=== PATIENT | female | born 1985 | race American Indian/Alaskan Native ===

== ENCOUNTER 2018-10-18 09:32 | Emergency (ER) | payer SELFPAY ==
[2018-10-18 10:24] LABS: Mean Corpuscular HGB Conc 34 % (30-34); Mean Corpuscular Volume 91 fl (79-97); Platelet Count 282 K/mm3 (140-440); Red Cell Distribution Width 12.9 % (13.2-15.2)
[2018-10-18 10:35] LABS: INR 1.04 (0.87-1.13); Partial Thromboplastin Time 23.5 Sec. (24.2-36.6)
[2018-10-18 11:07] LABS: Alanine Aminotransferase 17 units/L (7-56); Albumin 4.3 g/dL (3.9-5); BUN/Creatinine Ratio 13; Blood Urea Nitrogen 10 mg/dL (7-17); Calcium 9.2 mg/dL (8.4-10.2); Hemolysis Index 2
--- NOTE | 2018-10-18 11:13 | Emergency Department Report ---
ED General Adult HPI - General Chief complaint: Extremity Problem,Nontraumatic Stated complaint: LT SIDE/ARM/LEG/NAUSEA Time Seen by Provider: 10/18/18 11:08 Source: patient Mode of arrival: Ambulatory Limitations: No Limitations - History of Present Illness Initial comments: She presents to the emergency Department due to complaint of left upper extrem ity and left lower extremity pain. Patient has a history of DVTs and is currently on Lovenox. Patient denies any chest pain or shortness of breath. -: Gradual Location: upper extremity, lower extremity Severity scale (0 -10): 2 Quality: aching Consistency: constant Improves with: none Worsens with: none Associated Symptoms: denies other symptoms Treatments Prior to Arrival: none - Related Data Previous Rx's Medication Instructions Recorded Last Taken Type Naproxen [Naprosyn] 500 mg PO BID PRN #20 tablet 10/18/18 Unknown Rx Allergies Allergy/AdvReac Type Severity Reaction Status Date / Time No Known Allergies Allergy Verified 10/18/18 12:19 ED Review of Systems ROS: Stated complaint: LT SIDE/ARM/LEG/NAUSEA Other details as noted in HPI Comment: All other systems reviewed and negative Constitutional: denies: chills, fever Eyes: denies: eye pain, eye discharge, vision change ENT: denies: ear pain, throat pain Respiratory: denies: cough, shortness of breath, wheezing Cardiovascular: denies: chest pain, palpitations Endocrine: no symptoms reported Gastrointestinal: denies: abdominal pain, nausea, diarrhea Genitourinary: denies: urgency, dysuria, discharge Musculoskeletal: denies: back pain, joint swelling, arthralgia Skin: denies: rash, lesions Neurological: denies: headache, weakness, paresthesias Psychiatric: denies: anxiety, depression Hematological/Lymphatic: denies: easy bleeding, easy bruising ED Past Medical Hx - Social History Smoking Status: Never Smoker Substance Use Type: None - Medications Home Medications: Home Medications Medication Instructions Recorded Confirmed Last Taken Type Naproxen [Naprosyn] 500 mg PO BID PRN #20 tablet 10/18/18 Unknown Rx ED Physical Exam - General Limitations: No Limitations General appearance: alert, in no apparent distress - Head Head exam: Present: atraumatic, normocephalic - Eye Eye exam: Present: normal appearance, PERRL, EOMI - ENT ENT exam: Present: mucous membranes moist - Neck Neck exam: Present: normal inspection - Respiratory Respiratory exam: Present: normal lung sounds bilaterally. Absent: respiratory distress - Cardiovascular Cardiovascular Exam: Present: regular rate, normal rhythm. Absent: systolic murmur, diastolic murmur, rubs, gallop - GI/Abdominal GI/Abdominal exam: Present: soft, normal bowel sounds. Absent: distended, tenderness - Extremities Exam Extremities exam: Present: normal inspection - Back Exam Back exam: Present: normal inspection - Neurological Exam Neurological exam: Present: alert, oriented X3, CN II-XII intact. Absent: motor sensory deficit - Psychiatric Psychiatric exam: Present: normal affect, normal mood - Skin Skin exam: Present: warm, dry, intact, normal color. Absent: rash ED Course Vital Signs 10/18/18 10/18/18 10/18/18 09:43 10:42 10:45 Temperature 98.1 F Pulse Rate 83 Respiratory 18 Rate Blood Pressure 136/84 122/72 O2 Sat by Pulse 100 99 100 Oximetry 10/18/18 10/18/18 10/18/18 11:01 11:15 11:20 Temperature Pulse Rate 67 Respiratory 12 12 Rate Blood Pressure 119/78 121/69 O2 Sat by Pulse 100 100 100 Oximetry 10/18/18 10/18/18 11:30 11:45 Temperature Pulse Rate 64 62 Respiratory 16 16 Rate Blood Pressure 127/76 127/72 O2 Sat by Pulse 100 100 Oximetry ED Medical Decision Making - Lab Data Result diagrams: 10/18/18 10:11 10/18/18 10:11 Lab Results 10/18/18 10/18/18 10/18/18 Range/Units 10:11 10:11 10:11 WBC 4.9 (4.5-11.0) K/mm3 RBC 4.50 (3.65-5.03) M/mm3 Hgb 14.0 (10.1-14.3) gm/dl Hct 41.0 (30.3-42.9) % MCV 91 (79-97) fl MCH 31 (28-32) pg MCHC 34 (30-34) % RDW 12.9 L (13.2-15.2) % Plt Count 282 (140-440) K/mm3 PT 13.3 (12.2-14.9) Sec. INR 1.04 (0.87-1.13) APTT 23.5 L (24.2-36.6) Sec. Sodium 141 (137-145) mmol/L Potassium 3.8 (3.6-5.0) mmol/L Chloride 104.2 (98-107) mmol/L Carbon Dioxide 26 (22-30) mmol/L Anion Gap 15 mmol/L BUN 10 (7-17) mg/dL Creatinine 0.8 (0.7-1.2) mg/dL Estimated GFR > 60 ml/min BUN/Creatinine Ratio 13 % Glucose 92 (65-100) mg/dL Calcium 9.2 (8.4-10.2) mg/dL Total Bilirubin 0.30 (0.1-1.2) mg/dL AST 13 (5-40) units/L ALT 17 (7-56) units/L Alkaline Phosphatase 64 (35-129) units/L Troponin T (0.00-0.029) ng/mL Total Protein 8.0 (6.3-8.2) g/dL Albumin 4.3 (3.9-5) g/dL Albumin/Globulin Ratio 1.2 % // Range/Units 10:11 WBC (4.5-11.0) K/mm3 RBC (3.65-5.03) M/mm3 Hgb (10.1-14.3) gm/dl Hct (30.3-42.9) % MCV (79-97) fl MCH (28-32) pg MCHC (30-34) % RDW (13.2-15.2) % Plt Count (140-440) K/mm3 PT (12.2-14.9) Sec. INR (0.87-1.13) APTT (24.2-36.6) Sec. Sodium (137-145) mmol/L Potassium (3.6-5.0) mmol/L Chloride (98-107) mmol/L Carbon Dioxide (22-30) mmol/L Anion Gap mmol/L BUN (7-17) mg/dL Creatinine (0.7-1.2) mg/dL Estimated GFR ml/min BUN/Creatinine Ratio % Glucose (65-100) mg/dL Calcium (8.4-10.2) mg/dL Total Bilirubin (0.1-1.2) mg/dL AST (5-40) units/L ALT (7-56) units/L Alkaline Phosphatase (35-129) units/L Troponin T 0.010 (0.00-0.029) ng/mL Total Protein (6.3-8.2) g/dL Albumin (3.9-5) g/dL Albumin/Globulin Ratio % - EKG Data -: EKG Interpreted by Me EKG shows normal: sinus rhythm Rate: normal - EKG Data Interpretation: other (PVC's) - Radiology Data Radiology results: report reviewed - Medical Decision Making Discussed results with the patient Critical care attestation.: If time is entered above; I have spent that time in minutes in the direct care of this critically ill patient, excluding procedure time. ED Disposition Clinical Impression: Upper extremity pain, Lower extremity pain Disposition: TO HOME OR SELFCARE Is pt being admited?: No Does the pt Need Aspirin: No Condition: Stable Additional Instructions: return if worse Referrals: [facility], [Provider Group] - 3-5 Days [facility] [Provider Group] - 3-5 Days ROSSY MELLO MD [Staff Physician] - 3-5 Days Time of Disposition: 13:22
--- NOTE | 2018-10-18 12:20 | Vascular Lab Report ---
DUPLEX DOPPLER LOWER EXTREMITY VEINS, LEFT INDICATION: PAIN HX DVT. TECHNIQUE: Duplex doppler imaging was performed through the veins of the left lower extremity using venous compr ession and other maneuvers. COMPARISON: None available. FINDINGS: Common Femoral vein: Negative. Femoral vein: Negative. Popliteal vein: Negative. Calf veins: Negative. Additional findings: None. IMPRESSION: 1. No sonographic evidence for DVT in the left lower extremity. Signer Name: Constantine Sanford MD Signed: 10/18/2018 12:15 PM Workstation Name: [id number]
[2018-10-18 14:09] VITALS: BP 127/76
== END 2018-10-18 14:09 | disposition home or self-care (01) ==
LOC: ED 09:32
DX: M79.602 Pain in left arm (principal); M79.605 Pain in left leg
CPT/HCPCS: 36415; 80053; 84484; 85027; 85610; 85730; 93005; 93010

== ENCOUNTER 2019-03-27 15:47 | Emergency (ER) | payer OTHER ==
[2019-03-27 16:11] VITALS: BP 142/82
--- NOTE | 2019-03-27 16:13 | Event Note ---
ED Screening Note ED Screening Note: states she has burning and pain in her chest that began 1 hour ago did not take anything for it + nausea +lightheadedness no vomiting no diarrhea no fever states that her "d-dimer was high at the doctors office" two days ago PMHx DVT 2016, afib states she just started eliquis three days ago This initial assessment/diagnostic orders/clinical plan/treatment(s) is/are subject to change based on patients health status, clinical progression and re- assessment by fellow clinical providers in the ED. Further treatment and workup at subsequent clinical providers discretion. Patient/guardian urged not to elope from the ED as their condition may be serious if not clinically assessed and managed. Initial orders include: CP protocol
[2019-03-27 16:45] LABS: Basophils % (Auto) 0.2 % (0.0-1.8); Eosinophils # (Auto) 0.2 K/mm3 (0.0-0.4); Eosinophils % (Auto) 2.3 % (0.0-4.3); Hemoglobin 13.4 gm/dl (10.1-14.3); Lymphocytes # (Auto) 2.3 K/mm3 (1.2-5.4); Lymphocytes % (Auto) 29.5 % (13.4-35.0); Mean Corpuscular HGB Conc 34 % (30-34); Mean Corpuscular Volume 90 fl (79-97); Monocytes # (Auto) 0.6 K/mm3 (0.0-0.8); Monocytes % (Auto) 7.5 % (0.0-7.3); Platelet Count 292 K/mm3 (140-440); Red Blood Count 4.44 M/mm3 (3.65-5.03); Red Cell Distribution Width 12.9 % (13.2-15.2)
[2019-03-27 16:55] LABS: INR 1.08 (0.87-1.13)
[2019-03-27 17:18] LABS: Alanine Aminotransferase 15 units/L (7-56); Albumin 4.1 g/dL (3.9-5); BUN/Creatinine Ratio 15; Blood Urea Nitrogen 9 mg/dL (7-17); Calcium 9.4 mg/dL (8.4-10.2); Hemolysis Index 13
--- NOTE | 2019-03-27 17:57 | XRay Report ---
CHEST 2 VIEWS INDICATION / CLINICAL INFORMATION: Chest pain. COMPARISON: None available. FINDINGS: SUPPORT DEVICES: None. HEART / MEDIASTINUM: No significant abnormality. LUNGS / PLEURA: No significant pulmonary or pleural abnormality. No pneumothorax. ADDITIONAL FINDINGS: No significant additional findings. IMPRESSION: 1. No acute findings. Signer Name: Joe Kilpatrick MD Signed: 03/27/2019 5:53 PM Workstation Name: [id number] [email or web address]
--- NOTE | 2019-03-27 18:16 | Emergency Department Report ---
ED Chest Pain HPI - General Chief Complaint: Chest Pain Stated Complaint: CHEST PAIN/BURNING/LIGHT HEADED Time Seen by Provider: 03/27/19 16:11 Source: patient Mode of arrival: Ambulatory Limitations: No Limitations - History of Present Illness Initial Comments: states she has burning and pain in her chest that began 1 hour ago located midsternal around 4 PM today. patient has a past medical history of A. fib, PE, DVT did not take anything for it + nausea +lightheadedness no vomiting no diarrhea no fever states that her "d-dimer was high at the doctors office" two days ago Patient reports that she had been off of her anticoagulated medication for about a month and have started back on Eliquis 5 mg around [place] time. Patient was taking Lovenox. Patient currently denies any shortness of breath denies any chest pain at this time. Patient reports she is currently being treated for urinary tract infection with Macrobid. Patient's last menstrual period was 03/07/2019. Patient last saw her primary care provider was on 03/23/2019. 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) Pain Location: other (mid sternal) Pain Radiation: none Severity: mild Quality: other (burning) Worsens With: nothing re: denies: nausea, vomting, diaphoresis, dyspnea, sense of impending doom Other Symptoms: denies: cough, fever, syncope, acid taste in mouth, palpitations, burping Treatments Prior to Arrival: none - Related Data Home Medications Medication Instructions Recorded Confirmed Last Taken Apixaban [Eliquis] 03/27/19 1 Day Ago ~03/26/19 Previous Rx's Medication Instructions Recorded Last Taken Type Naproxen [Naprosyn] 500 mg PO BID PRN #20 tablet 10/18/18 03/27/19 20:20 Rx Allergies Allergy/AdvReac Type Severity Reaction Status Date / Time No Known Allergies Allergy Verified 10/18/18 12:19 Heart Score - HEART Score History: Slightly suspicious EKG: Non-specific Age: < 45 Risk factors: 1-2 risk factors Troponin: < normal limit HEART Score: 2 ED Review of Systems ROS: Stated complaint: CHEST PAIN/BURNING/LIGHT HEADED Other details as noted in HPI Comment: All other systems reviewed and negative ED Past Medical Hx - Past Medical History Hx Deep Vein Thrombosis: Yes (LLE) Hx Pulmonary Embolism: Yes (Right) Additional medical history: Afib per pt - Surgical History Additional Surgical History: x1, cerclage x3 - Social History Smoking Status: Never Smoker Substance Use Type: None - Medications Home Medications: Home Medications Medication Instructions Recorded Confirmed Last Taken Type Naproxen [Naprosyn] 500 mg PO BID PRN #20 tablet 10/18/18 03/27/19 20:20 Rx Apixaban [Eliquis] 03/27/19 1 Day Ago History ~03/26/19 ED Physical Exam - General Limitations: No Limitations General appearance: alert, in no apparent distress - Head Head exam: Present: atraumatic, normocephalic - Eye Eye exam: Present: normal appearance - ENT ENT exam: Present: mucous membranes moist - Neck Neck exam: Present: normal inspection - Respiratory Respiratory exam: Present: normal lung sounds bilaterally. Absent: respiratory distress, chest wall tenderness - Cardiovascular Cardiovascular Exam: Present: regular rate, normal rhythm. Absent: systolic murmur, diastolic murmur, rubs, gallop - GI/Abdominal GI/Abdominal exam: Present: soft, normal bowel sounds - Extremities Exam Extremities exam: Present: normal inspection - Back Exam Back exam: Present: normal inspection - Neurological Exam Neurological exam: Present: alert, oriented X3 - Psychiatric Psychiatric exam: Present: normal affect, normal mood - Skin Skin exam: Present: warm, dry, intact, normal color. Absent: rash ED Course Vital Signs 03/27/19 03/27/19 15:53 17:49 Temperature 98.8 F Pulse Rate 91 H Respiratory 20 16 Rate Blood Pressure 142/82 O2 Sat by Pulse 100 Oximetry VITO score - Vito Score Age > 65: (0) No Aspirin use within the Past 7 Days: (0) No 2 or more Angina events in past 24 hrs: (0) No Known CAD with more than 50% Stenosis: (0) No Elevated Cardiac Markers: (0) No ST Deviation Greater than 0.5mm: (0) No ED Medical Decision Making - Lab Data Result diagrams: 03/27/19 16:24 03/27/19 16:24 - Radiology Data Radiology results: report reviewed Patient: MALICK MONTOYA MR#: [id number] : 1985 Acct:[id number] Age/Sex: 33 / F ADM Date: 03/27/19 Loc: ED Attending Dr: Ordering Physician: ALVARO DE OLIVEIRA Date of Service: 03/27/19 Procedure(s): XR chest routine 2V Accession Number(s): [id number] cc: ALVARO DE OLIVEIRA Fluoro Time In Minutes: CHEST 2 VIEWS INDICATION / CLINICAL INFORMATION: Chest pain. COMPARISON: None available. FINDINGS: SUPPORT DEVICES: None. HEART / MEDIASTINUM: No significant abnormality. LUNGS / PLEURA: No significant pulmonary or pleural abnormality. No pneumothorax. ADDITIONAL FINDINGS: No significant additional findings. IMPRESSION: 1. No acute findings. Signer Name: Joe Kilpatrick MD Signed: 03/27/2019 5:53 PM Workstation Name: [id number] Transcribed By: RG Dictated By: Joe Kilpatrick MD Electronically Authenticated By: Joe Kilpatrick MD Signed Date/Time: 03/27/191752 DD/ 52 TD/TT: Patient: MALICK MONTOYA MR#: [id number] : 1985 Acct:[id number] Age/Sex: 33 / F ADM Date: 03/27/19 Loc: ED Attending Dr: Ordering Physician: ALVARO DE OLIVEIRA Date of Service: 03/27/19 Procedure(s): CT angio chest Accession Number(s): [id number] cc: ALVARO DE OLIVEIRA CTA CHEST WITH IV CONTRAST INDICATION: Chest pain, elevated d-dimer. TECHNIQUE: Axial CT images were obtained through the chest after injection of 100 mL Omnipaque 350 IV contrast. 3 plane MIP reconstructions were produced. All CT scans at this location are performed using CT dose reduction for ALARA by means of automated exposure control. COMPARISON: None available. FINDINGS: Pulmonary Arteries: No pulmonary emboli. Lungs: No significant abnormality. Trachea and Bronchi: No significant abnormality. Heart and Pericardium: No significant abnormality. Vasculature: No significant abnormality. Lymphatics: No lymphadenopathy. Additional Findings: None. Upper Abdomen: No acute findings. Skeletal Structures: No significant osseous abnormality. IMPRESSION: 1. No CT evidence for pulmonary embolism. 2. No acute findings. Signer Name: Joe Kilpatrick MD Signed: 03/27/2019 7:13 PM Workstation Name: [id number] Transcribed By: RG Dictated By: Joe Kilpatrick MD Electronically Authenticated By: Joe Kilpatrick MD Signed Date/Time: 03/27/191912 DD/ 11 TD/TT: - Medical Decision Making states she has burning and pain in her chest that began 1 hour ago located midsternal around 4 PM today. patient has a past medical history of A. fib, PE, DVT did not take anything for it + nausea +lightheadedness no vomiting no diarrhea no fever states that her "d-dimer was high at the doctors office" two days ago Patient reports that she had been off of her anticoagulated medication for about a month and have started back on Eliquis 5 mg around [place] time. Patient was taking Lovenox. Patient currently denies any shortness of breath denies any chest pain at this time. Patient reports she is currently being treated for ur inary tract infection with Macrobid. Patient's last menstrual period was 03/07/2019. Patient last saw her primary care provider was on 03/23/2019. Chest pain protocol has been initiated. CT chest CTA chest two negative troponin EKG stable heart rate 89 no signs of A. fib Patient is to follow-up with her core analyst and primary care provider. Critical care attestation.: If time is entered above; I have spent that time in minutes in the direct care of this critically ill patient, excluding procedure time. ED Disposition Clinical Impression: Atypical chest pain, History of pulmonary embolism, History of deep vein thromb osis, History of atrial fibrillation Disposition: DC-01 TO HOME OR SELFCARE Is pt being admited?: No Does the pt Need Aspirin: No Condition: Stable Instructions: Chest Pain (ED) Referrals: KAREN RUBI NP-C [Referring] - 3-5 Days Forms: Work/School Release Form(ED)
--- NOTE | 2019-03-27 19:18 | Cat Scan Report ---
CTA CHEST WITH IV CONTRAST INDICATION: Chest pain, elevated d-dimer. TECHNIQUE: Axial CT images were obtained through the chest after injection of 100 mL Omnipaque 350 IV contrast. 3 plane MIP reconstructions were produced. All CT scans at this location are performed using CT dose reduction for ALARA by means of automated exposure control. COMPARISON: None available. FINDINGS: Pulmonary Arteries: No pulmonary emboli. Lungs: No significant abnormality. Trachea and Bronchi: No significant abnormality. Heart and Pericardium: No significant abnormality. Vasculature: No significant abnormality. Lymphatics: No lymphadenopathy. Additional Findings: None. Upper Abdomen: No acute findings. Skeletal Structures: No significant osseous abnormality. IMPRESSION: 1. No CT evidence for pulmonary embolism. 2. No acute findings. Signer Name: Joe Kilpatrick MD Signed: 03/27/2019 7:13 PM Workstation Name: [email or web address]
== END 2019-03-27 21:30 | disposition home or self-care (01) ==
LOC: ED 15:47
DX: R07.89 Other chest pain (principal); R42 Dizziness and giddiness; I48.91 Unspecified atrial fibrillation; Z86.711 Personal history of pulmonary embolism; Z98.890 Other specified postprocedural states; Z79.899 Other long term (current) drug therapy
CPT/HCPCS: 36415; 71046; 71275; 80053; 84484; 84703; 85025; 85379; 85610; 85730; 93005; 93010; 99285; Q9967

== ENCOUNTER 2019-04-25 06:01 | Day surgery (SDC) | payer OTHER, MEDICAID ==
--- NOTE | 2019-04-23 10:34 | History and Physical Report ---
History of Present Illness Date of examination: 04/18/19 Chief complaint: MISAEL II History of present illness: Pt is a 33 year old -[place] female with HSIL pap smear and MISAEL II on colposcopic biopsy. She presents for surgical evaluation of MISAEL II. 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 History: abnormal PAP smear (per HPI ), herpes Family/Genetic History: diabetes, hypertension, cancer Social history: no significant social history, - Obstetrical History : 5 Para: 3 Hx # Term Pregnancies: 3 Number of Pregnancies: 0 Spontaneous Abortions: 2 Induced : 0 Number of Living Children: 3 Medications and Allergies Allergies Allergy/AdvReac Type Severity Reaction Status Date / Time No Known Allergies Allergy Verified 04/20/19 15:43 Home Medications Medication Instructions Recorded Confirmed Last Taken Type Apixaban [Eliquis] 5 mg PO BID 03/27/19 04/20/19 1 Day Ago History ~03/26/19 Cholecalciferol (Vitamin D3) 1 cap PO QWEEK 04/20/19 04/20/19 Unknown History [Vitamin D3 50,000UNIT CAP] Simvastatin 20 mg PO HS 04/20/19 04/20/19 Unknown History Valacyclovir HCl [Valtrex] 1,000 mg PO DAILY PRN 04/20/19 04/20/19 Unknown History Review of Systems All systems: negative - Physical Exam Breasts: Positive: deferred Abdomen: Positive: soft Extremities: Positive: normal Results All other labs normal. Assessment and Plan A: MISAEL II HSIL pap smear P: Proceed with Loop Electrosurgical Excision Procedure (LEEP) and other indicated procedures
[~2019-04-25 06:01] MED LIST: LACTATED RINGERS 1,000 ML IV SCH; ceFAZolin/Water 2 GM/20 ML 2 GM/20 ML SYRINGE IV NR
--- NOTE | 2019-04-25 06:48 | Anesthesia Day of Surgery ---
Anesthesia Day of Surgery - Day of Surgery Patient Examined: Yes Patient H&P Reviewed: Yes Patient is NPO: Yes
--- NOTE | 2019-04-25 06:48 | Anesthesia Day of Surgery ---
Anesthesia Day of Surgery - Day of Surgery Patient Examined: Yes Patient H&P Reviewed: Yes Patient is NPO: Yes
[2019-04-25] MEDS ORDERED: fentaNYL 100 MCG/2 ML INJ IV PRN (06:50)
[2019-04-25] MEDS ORDERED: ONDANSETRON 4 MG/2 ML INJ IV PRN (06:50)
[2019-04-25] MEDS ORDERED: ACETAMINOPHEN 325 MG TAB PO PRN (06:50)
--- NOTE | 2019-04-25 06:50 | Anesthesia Consultation ---
Anesthesia Consult and Med Hx Date of service: 04/25/19 - Airway Anesthetic Teeth Evaluation: Good ROM Head & Neck: Adequate Mental/Hyoid Distance: Adequate Mallampati Class: Class II - Pulmonary Exam CTA: Yes - Cardiac Exam Anesthetic Concerns: A Fib - Pre-Operative Health Status ASA Pre-Surgery Classification: ASA3 Proposed Anesthetic Plan: General (DVT) - Pulmonary Hx Asthma: Yes (As a child) - Central Nervous System Hx Psychiatric Problems: No - Other Systems Hx Alcohol Use: Yes (Occas) Hx Cancer: No
[2019-04-25 08:02] VITALS: BP 136/72
== END 2019-04-25 07:42 | disposition home or self-care (01) ==
LOC: OR 06:01
PROVIDERS: ATTEND Obstetrics & Gynecology
DX: N87.1 Moderate cervical dysplasia (principal); E78.00 Pure hypercholesterolemia, unspecified; E11.9 Type 2 diabetes mellitus without complications; I10 Essential (primary) hypertension; J45.909 Unspecified asthma, uncomplicated; Z72.89 Other problems related to lifestyle; Z53.8 Procedure and treatment not carried out for other reasons; Z98.891 History of uterine scar from previous surgery
CPT/HCPCS: 81025; J0690

== ENCOUNTER 2019-05-08 06:01 | Day surgery (SDC) | payer OTHER, MEDICAID ==
--- NOTE | 2019-05-07 20:54 | History and Physical Report ---
History of Present Illness Date of examination: 04/18/19 Chief complaint: MISAEL II History of present illness: Pt is a 33 year old -Citizen Of [place] female with HSIL pap smear an MISAEL II on colposcopic biopsy who presents for surgical evaluation. 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: abnormal PAP smear (per HPI), herpes Family/Genetic History: diabetes, hypertension, cancer Social history: no significant social history, - Obstetrical History : 5 Para: 3 Hx # Term Pregnancies: 3 Number of Pregnancies: 0 Spontaneous Abortions: 2 Induced : 0 Number of Living Children: 3 Medications and Allergies Allergies Allergy/AdvReac Type Severity Reaction Status Date / Time No Known Allergies Allergy Verified 04/26/19 10:30 Home Medications Medication Instructions Recorded Confirmed Last Taken Type Apixaban [Eliquis] 5 mg PO BID 03/27/19 04/26/19 04/24/19 09:00 History Cholecalciferol (Vitamin D3) 1 cap PO QWEEK 04/20/19 04/26/19 04/18/19 09:00 History [Vitamin D3 50,000UNIT CAP] Simvastatin 20 mg PO HS 04/20/19 04/26/19 04/24/19 20:00 History Valacyclovir HCl [Valtrex] 1,000 mg PO DAILY PRN 04/20/19 04/26/19 04/18/19 09:00 History Metoprolol Xl [Metoprolol 25 mg PO QDAY 04/26/19 04/26/19 Unknown History SUCCINATE ER TAB] Active Meds: Active Medications Lactated Ringer's (Lactated Ringers) 1,000 mls @ 100 mls/hr IV DIRECT ARNULFO Cefazolin Sodium (Ancef/Sterile Water 2 Gm/20 Ml) 2 gm in 20 mls @ 80 mls/hr IV PREOP NR; Protocol Midazolam HCl (Versed) 2 mg IV PREOP NR Stop: 05/08/19 23:00 Review of Systems All systems: negative - Physical Exam Breasts: Positive: deferred Abdomen: Positive: soft Extremities: Positive: normal Results All other labs normal. Assessment and Plan A: MISAEL II on colposcopic biopsy HSIL pap smear H/o DVT and PE H/o Atrial Fibrillation Anticoagulated with Eliquis, last dose 4 days ago P: Proceed with Loop Electrosurgical Excision Procedure (LEEP) and other indicated procedures
[2019-05-08] MEDS ORDERED: BACTERIOSTATIC SODIUM CHLORIDE 0.9% 30 ML VIAL INFILTRATI ONE (06:15)
[2019-05-08] MEDS: MIDAZOLAM 2 MG/2 ML INJ IV NR ×2 (07:10→08:35)
[2019-05-08] MEDS ORDERED: GELATIN SPONGE,ABSORBABLE 1 GM POWDER MM ONE (07:24)
[2019-05-08] MEDS ORDERED: BUPIVACAINE/PF (0.5%) 5 MG/1 ML 30 ML VIAL INFILTRATI ONE (07:25)
[2019-05-08] MEDS ORDERED: FERRIC SUBSULFATE TOPICAL SOLN 8 ML TP ONE ×2 (07:25→09:25)
[2019-05-08] MEDS ORDERED: POTASSIUM IODIDE/IODINE (LUGOLS) 30 ML TP ONE ×2 (07:25→09:15)
[2019-05-08] MEDS ORDERED: SODIUM CHLORIDE 0.9% 100 ML ONE (07:25)
[2019-05-08] MEDS ORDERED: VASOPRESSIN 20 UNIT/1 ML INJ ONE (07:26)
[2019-05-08] MEDS ORDERED: propofoL 200 MG/20 ML VIAL IV ONE (07:30)
[2019-05-08] MEDS ORDERED: fentaNYL 100 MCG/2 ML INJ ONE (07:30)
[2019-05-08] MEDS ORDERED: LIDOCAINE MPF (2%) 20 MG/1 ML VIAL 5 ML ONE (07:31)
[2019-05-08] MEDS ORDERED: dexAMETHasone 20 MG/5 ML VIAL ONE (07:31)
[2019-05-08] MEDS ORDERED: ONDANSETRON 4 MG/2 ML INJ ONE (07:31)
[2019-05-08] MEDS ORDERED: ONDANSETRON 4 MG/2 ML INJ IV PRN (07:32)
[2019-05-08] MEDS ORDERED: fentaNYL 100 MCG/2 ML INJ IV PRN (07:32)
--- NOTE | 2019-05-08 07:35 | Anesthesia Day of Surgery ---
Anesthesia Day of Surgery - Day of Surgery Patient Examined: Yes Patient H&P Reviewed: Yes Patient is NPO: Yes Beta Blockers: Yes
[2019-05-08 07:47] LABS: Hematocrit 42.5 % (30.3-42.9); Hemoglobin 14.1 gm/dl (10.1-14.3); Mean Corpuscular HGB Conc 33 % (30-34); Mean Corpuscular Volume 90 fl (79-97); Platelet Count 261 K/mm3 (140-440); Red Cell Distribution Width 12.9 % (13.2-15.2)
[2019-05-08] MEDS ORDERED: SILVER NITRATE APPLICATOR 1 EA TP ONE ×3 (08:57→11:32)
[2019-05-08] MEDS ORDERED: SODIUM CHLORIDE 0.9% 100 ML IVPB IV ONE (09:10)
[2019-05-08] MEDS ORDERED: GLYCOPYRROLATE 0.4 MG/2 ML INJ ONE (09:28)
[2019-05-08] MEDS ORDERED: PHENYLEPHRINE/NS 1,000 MCG/10 ML SYRINGE (OR USE) IV ONE (09:28)
--- NOTE | 2019-05-08 09:36 | Operative Report ---
Operative Report Operative Report: Date of procedure: May 08, 2019 Preoperative diagnosis: MISAEL II Postoperative diagnosis: same Procedure: Loop Electrosurgical Excision Procedure (LEEP) Surgeon: Jenny Aceves MD Anesthesia: General with LMA Findings: Circumferential non-staining area of cervix after application of Lugol's solution EBL: 10 mL Specimens: cervical cone biopsy tagged at 12 o'clock to pathology Drains: None Complications: None. Counts correct x 2 Disposition: stable to PACU Indication for procedure: Pt is a 33 year old -[place] female with HSIL pap smear and MISAEL II on colposcopic biopsy who presents for surgical evaluation. Operation in detail: After the risks, benefits, alternatives, and complications were explained to the patient, she gave informed consent for the procedure. She was subsequently taken to the operating room with her IV noted to be running well and placed in the dorsal supine position. SCDs were noted to be in place and functioning. General anesthesia was induced without difficulty. The patient was then placed in the dorsal lithotomy position and prepped and draped in a normal sterile fashion. A timeout was performed. The bladder was drained of urine prior to the start of the procedure. A coated speculum was then placed in the vagina for visualization of the cervix. A coated tenaculum was placed on the anterior lip of the cervix for traction. The cervix was injected with 10 mL of a dilute pitressin solution at 12, 3 , 6, and 9 o'clock. Lugol's solution was then placed on cervix with circumferential non- staining area around the external cervical os. A medium loop was used to excise cervical cone biopsy specimen that was tagged at 12 o'clock with 2-0 Vicryl suture and then sent to pathology. Rollerball cautery was used to obtain hemostasis of the cervical bed. Monsel's solution was placed over the cervical bed. Surgicel was placed in over the cervical bed. Hemostasis was noted. The tenaculum was removed atraumatically. Hemostasis of the tenaculum puncture sites was achieved using silver nitrate. All instruments were removed from the vagina atraumatically and the procedure was then ended. The patient was then replaced into the dorsal supine position and extubated without difficulty. She was then taken to the PACU in stable condition. All counts were correct x 2.
--- NOTE | 2019-05-08 09:40 | Short Stay Summary ---
Short Stay Documentation Date of service: 05/08/19 - History H&P: dictated Social history: no significant social history, - Allergies and Medications Current Medications: Allergies No Known Allergies Allergy (Verified 04/26/19 10:30) Home Medications Medication Instructions Recorded Confirmed Last Taken Type Apixaban [Eliquis] 5 mg PO BID 03/27/19 05/08/19 5 Days Ago History ~05/03/19 Cholecalciferol (Vitamin D3) 1 cap PO QWEEK 04/20/19 05/08/19 05/05/19 History [Vitamin D3 50,000UNIT CAP] Simvastatin 20 mg PO HS 04/20/19 05/08/19 05/07/19 History Valacyclovir HCl [Valtrex] 1,000 mg PO DAILY PRN 04/20/19 05/08/19 04/18/19 09:00 History Metoprolol Xl [Metoprolol 25 mg PO QDAY 04/26/19 05/08/19 05/08/19 06:40 History SUCCINATE ER TAB] Active Medications Fentanyl (Sublimaze) 50 mcg IV Q5MIN PRN PRN Reason: Pain , Severe (7-10) Stop: 05/08/19 22:00 Lactated Ringer's (Lactated Ringers) 1,000 mls @ 100 mls/hr IV DIRECT ARNULFO Last Admin: 05/08/19 07:00 Dose: 100 mls/hr Documented by: Cefazolin Sodium (Ancef/Sterile Water 2 Gm/20 Ml) 2 gm in 20 mls @ 80 mls/hr IV PREOP NR; Protocol Stop: 05/08/19 23:59 Midazolam HCl (Versed) 2 mg IV PREOP NR Stop: 05/08/19 23:00 Last Admin: 05/08/19 08:35 Dose: 2 mg Documented by: Ondansetron HCl (Zofran) 4 mg IV ONCE PRN PRN Reason: Nausea And Vomiting Stop: 05/08/19 13:00 - Physical exam Breasts: deferred - Brief post op/procedure progress note Date of procedure: 05/08/19 Pre-op diagnosis: MISAEL II Post-op diagnosis: same Procedure: Loop Electrosurgical Excisio Procedure (LEEP) Anesthesia: GETA (with LMA ) Findings: Small circumferential non-staining area surrounding external cervical os when covered with Lugol's Solution Surgeon: DANILO HANCOCK Estimated blood loss: minimal (10 mL) Pathology: list (cervical biopsy) Specimen disposition: to lab Condition: stable - Hospital course Hospital course: Pt underwent LEEP procedure which she tolerated well. She was observed in the PACU until she met discharge criteria. She will follow up in the office in 1 week. - Disposition Condition at discharge: Stable Disposition: - TO HOME OR SELFCARE - Discharge Diagnoses (1) MISAEL II (cervical intraepithelial neoplasia II) Status: Acute Short Stay Discharge Plan Activity: other (Nothing in vagina, no intercourse, no tub baths, no swimming for 4 weeks ) Weight Bearing Status: Full Weight Bearing Diet: regular Follow up with: KAREN RUBI NP-C [Primary Care Provider] - 7 Days DANILO HANCOCK MD [Staff Physician] - 7 Days (Please call to schedule a postop appt next week ) Prescriptions: HYDROcodone/APAP 5-325 [[place] 5/325] 1 each PO Q6HR PRN #20 tablet PRN Reason: Pain
[2019-05-08 10:48] VITALS: BP 126/73
--- NOTE | 2019-05-08 20:48 | Post Anesthesia Evaluation ---
- Post Anesthesia Evaluation Patient Participated: Yes Airway Patent: Yes Stable Respiratory Function: Yes Nausea/Vomiting: No Temp > 96.8F: Yes Pain Manageable: Yes Adequeate Hydration: Yes Anesthesia Complications: No Block Receding Appropriately: Not Applicable Patient on Ventilator: No
== END 2019-05-08 06:02 | disposition home or self-care (01) ==
LOC: OR 06:01
PROVIDERS: ATTEND Obstetrics & Gynecology
DX: N87.1 Moderate cervical dysplasia (principal); E78.00 Pure hypercholesterolemia, unspecified; I48.91 Unspecified atrial fibrillation; J45.909 Unspecified asthma, uncomplicated; K21.9 Gastro-esophageal reflux disease without esophagitis; Z98.891 History of uterine scar from previous surgery; Z86.711 Personal history of pulmonary embolism; Z79.899 Other long term (current) drug therapy; Z72.89 Other problems related to lifestyle; Z98.890 Other specified postprocedural states; Z86.2 Personal history of diseases of the blood and blood-forming organs and certain disorders involving the immune mechanism
CPT/HCPCS: 36415; 57522; 81025; 82962; 85027; 88307; 93005; 93010; J0690; J1100; J2250; J2370; J2405; J2704; J3010; J7120; A4649

== ENCOUNTER 2019-12-06 11:07 | Emergency (ER) | payer OTHER, MEDICAID ==
[2019-12-06 12:49] LABS: Basophils % (Auto) 0.3 % (0.0-1.8); Eosinophils % (Auto) 0.7 % (0.0-4.3); Hematocrit 43.1 % (30.3-42.9); Hemoglobin 14.6 gm/dl (10.1-14.3); Lymphocytes # (Auto) 1.1 K/mm3 (1.2-5.4); Lymphocytes % (Auto) 17.5 % (13.4-35.0); Mean Corpuscular HGB Conc 34 % (30-34); Mean Corpuscular Volume 92 fl (79-97); Monocytes # (Auto) 0.2 K/mm3 (0.0-0.8); Monocytes % (Auto) 3.8 % (0.0-7.3); Platelet Count 249 K/mm3 (140-440); Red Blood Count 4.72 M/mm3 (3.65-5.03); Red Cell Distribution Width 12.6 % (13.2-15.2)
[2019-12-06 12:56] LABS: INR 1.19 (0.87-1.13)
[2019-12-06 12:57] LABS: Partial Thromboplastin Time 25.9 Sec. (24.2-36.6)
[2019-12-06 13:01] LABS: Blood Urea Nitrogen 9 mg/dL (7-17); Calcium 9.5 mg/dL (8.4-10.2); Hemolysis Index 6
[2019-12-06 13:02] LABS: BUN/Creatinine Ratio 13
--- NOTE | 2019-12-06 13:15 | Cat Scan Report ---
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 TECHNIQUE: Routine CT head without contrast. All CT scans at this location are performed using CT dos e reduction for ALARA by means of automated exposure control. COMPARISON: None. FINDINGS: BRAIN / INTRACRANIAL CONTENTS: No acute hemorrhage, mass effect, midline shift, hydrocephalus, or acu te, large territorial infarct. No chronic infarct or focal atrophy. Normal brain volume and ventricul ar/sulcal size for age. No significant white matter abnormality. CRANIOCERVICAL JUNCTION: No significant abnormality. ORBITS: No significant abnormality of visualized orbits. SINUSES / MASTOIDS: No significant abnormality of the visualized paranasal sinuses or mastoid air сергей ls. ADDITIONAL FINDINGS: Empty sella IMPRESSION: No acute focal parenchymal lesion in the brain Signer Name: Rebekah Land MD Signed: 12/06/2019 1:11 PM Workstation Name: [id number]
[2019-12-06 16:16] VITALS: BP 129/71
--- NOTE | 2019-12-06 17:07 | Emergency Department Report ---
ED Dizziness HPI - General Chief Complaint: Neuro Symptoms/Deficit Stated Complaint: DIZZY/PRESURE ON RIGHT SIDE OF HEAD/CONFUSION Time Seen by Provider: 12/06/19 16:28 Source: patient Mode of arrival: Ambulatory Limitations: No Limitations - History of Present Illness Initial Comments: Patient is 33 years old female with history of pulmonary embolism, DVT and atrial fibrillation, currently on Eliquis 10 mg daily. Patient presented to the ER complaining of dizziness and lightheadedness. Patient stated that she woke up with symptoms this morning. She stated that she was fine last night. Patient denied any chest pain or shortness of breath. No lower extremity swelling or pain. Patient also denied any fever, chills, cough, nausea or vomiting. Patient also denied any focal weakness, numbness or tingling sensation. No bowel or bladder incontinence MD Complaint: dizziness, lightheadedness -: This morning Timing: awoke with symptoms Description: sense of movement, lightheadedness History of Same: Yes History of Trauma: No Severity: moderate Associated Symptoms: denies other symptoms - Related Data Home Medications Medication Instructions Recorded Confirmed Last Taken Apixaban [Eliquis] 5 mg PO BID 03/27/19 05/08/19 5 Days Ago ~05/03/19 Cholecalciferol (Vitamin D3) 1 cap PO QWEEK 04/20/19 05/08/19 05/05/19 [Vitamin D3 50,000UNIT CAP] Simvastatin 20 mg PO HS 04/20/19 05/08/19 05/07/19 Valacyclovir HCl [Valtrex] 1,000 mg PO DAILY PRN 04/20/19 05/08/19 04/18/19 09:00 Metoprolol Xl [Metoprolol 25 mg PO QDAY 04/26/19 05/08/19 05/08/19 06:40 SUCCINATE ER TAB] Previous Rx's Medication Instructions Recorded Last Taken Type HYDROcodone/APAP 5-325 [[place] 1 each PO Q6HR PRN #20 tablet 05/08/19 Unknown Rx 5/325] HYDROcodone/APAP 5-325 [[place] 1 each PO Q6HR PRN #20 tablet 05/08/19 Unknown Rx 5/325] Apixaban [Eliquis] 2.5 mg PO BID #60 tablet 06/19/19 Unknown Rx traMADoL [Ultram 50 MG tab] 50 mg PO Q6HR PRN #10 tablet 06/19/19 Unknown Rx Allergies Allergy/AdvReac Type Severity Reaction Status Date / Time No Known Allergies Allergy Verified 04/26/19 10:30 ED Review of Systems ROS: Stated complaint: DIZZY/PRESURE ON RIGHT SIDE OF HEAD/CONFUSION Other details as noted in HPI Comment: All other systems reviewed and negative Constitutional: denies: chills, fever Respiratory: denies: cough, shortness of breath, SOB with exertion Cardiovascular: denies: chest pain, palpitations, dyspnea on exertion Gastrointestinal: denies: abdominal pain, nausea, vomiting, diarrhea, constipation, hematemesis, melena, hematochezia Musculoskeletal: denies: back pain Neurological: vertigo. denies: headache, weakness, numbness, paresthesias, confusion, abnormal gait ED Past Medical Hx - Past Medical History Hx Deep Vein Thrombosis: Yes (x2 takes Eliquis) Hx Pulmonary Embolism: Yes (Right) Hx GERD: Yes Hx Asthma: Yes (As a child) Additional medical history: Afib per pt - Surgical History Additional Surgical History: x1, cerclage x3 - Social History Smoking Status: Never Smoker Substance Use Type: None - Medications Home Medications: Home Medications Medication Instructions Recorded Confirmed Last Taken Type Apixaban [Eliquis] 5 mg PO BID 03/27/19 05/08/19 5 Days Ago History ~05/03/19 Cholecalciferol (Vitamin D3) 1 cap PO QWEEK 04/20/19 05/08/19 05/05/19 History [Vitamin D3 50,000UNIT CAP] Simvastatin 20 mg PO HS 04/20/19 05/08/19 05/07/19 History Valacyclovir HCl [Valtrex] 1,000 mg PO DAILY PRN 04/20/19 05/08/19 04/18/19 09:00 History Metoprolol Xl [Metoprolol 25 mg PO QDAY 04/26/19 05/08/19 05/08/19 06:40 History SUCCINATE ER TAB] HYDROcodone/APAP 5-325 [[place] 1 each PO Q6HR PRN #20 tablet 05/08/19 Unknown Rx 5/325] HYDROcodone/APAP 5-325 [[place] 1 each PO Q6HR PRN #20 tablet 05/08/19 Unknown Rx 5/325] Apixaban [Eliquis] 2.5 mg PO BID #60 tablet 06/19/19 Unknown Rx traMADoL [Ultram 50 MG tab] 50 mg PO Q6HR PRN #10 tablet 06/19/19 Unknown Rx ED Physical Exam - General Limitations: No Limitations General appearance: alert, in no apparent distress - Head Head exam: Present: atraumatic, normocephalic, normal inspection - Eye Eye exam: Present: normal appearance, PERRL - ENT ENT exam: Present: normal exam, normal orophraynx, mucous membranes moist - Neck Neck exam: Present: normal inspection, full ROM. Absent: tenderness, meningismus, lymphadenopathy, thyromegaly - Respiratory Respiratory exam: Present: normal lung sounds bilaterally - Cardiovascular Cardiovascular Exam: Present: regular rate, irregular rhythm. Absent: systolic murmur, diastolic murmur - GI/Abdominal GI/Abdominal exam: Present: soft, normal bowel sounds. Absent: distended, tenderness, guarding, rebound, rigid - Extremities Exam Extremities exam: Present: normal inspection, full ROM, normal capillary refill. Absent: tenderness, pedal edema, joint swelling, calf tenderness - Back Exam Back exam: Present: normal inspection, full ROM. Absent: CVA tenderness (R), CVA tenderness (L) - Neurological Exam Neurological exam: Present: alert, oriented X3, CN II-XII intact, normal gait, reflexes normal. Absent: motor sensory deficit - Psychiatric Psychiatric exam: Present: normal mood - Skin Skin exam: Present: warm, intact, normal color ED Course Vital Signs 12/06/19 12/06/19 11:31 16:11 Temperature 98.6 F Pulse Rate 65 71 Respiratory 16 18 Rate Blood Pressure 121/73 Blood Pressure 129/71 [Left] O2 Sat by Pulse 100 100 Oximetry ED Medical Decision Making - Lab Data Result diagrams: 12/06/19 12:22 12/06/19 12:22 - Radiology Data Radiology results: report reviewed - Medical Decision Making Patient is 33 years old female with history of pulmonary embolism, DVT and atrial fibrillation, currently on Eliquis 10 mg daily. Patient presented to the ER complaining of dizziness and lightheadedness. Patient stated that she woke up with symptoms this morning. She stated that she was fine last night. Pat ient denied any chest pain or shortness of breath. No lower extremity swelling or pain. Patient also denied any fever, chills, cough, nausea or vomiting. Patient also denied any focal weakness, numbness or tingling sensation. No bowel or bladder incontinence. Labs reviewed and is unremarkable. CT brain is negative for acute finding. Discussed with the patient further test that we need to order to make sure that she does not have a pulmonary embolism or stroke given her strong history of D VT, pulmonary embolism and atrial fibrillation and patient also reported that she is not consistently taking her Eliquis, I recommended the patient to be admitted to the hospital for further management including stroke work-up because this is could be a posterior circulation stroke given the dizziness. Patient refused the test and refused admission and stated that she will go home. I explained to the patient thoroughly this is very dangerous and he can cause , disability however patient still wanted to leave AGAINST MEDICAL ADVICE. Patient is alert, oriented x3 and able to make sound decision. Patient strongly advised to return to the ER or go to another ER if her symptoms get worse and also if she wanted come back at any time to finish her work-up. Critical care attestation.: If time is entered above; I have spent that time in minutes in the direct care of this critically ill patient, excluding procedure time. ED Disposition Clinical Impression: Dizziness Disposition: DC-07 LEFT AGAINST MED ADVICE Is pt being admited?: No Condition: Stable Instructions: Dizziness (ED), Lightheadedness (ED) Referrals: KAREN RUBI NP-C [Primary Care Provider] - 3-5 Days Forms: AMA Form
== END 2019-12-06 17:02 | disposition left against medical advice (07) ==
LOC: ED 11:07
DX: R42 Dizziness and giddiness (principal); K21.9 Gastro-esophageal reflux disease without esophagitis; J45.909 Unspecified asthma, uncomplicated; Z86.718 Personal history of other venous thrombosis and embolism; Z86.711 Personal history of pulmonary embolism; Z98.890 Other specified postprocedural states; Z79.899 Other long term (current) drug therapy
CPT/HCPCS: 36415; 70450; 80048; 82962; 84484; 85025; 85610; 85730

== ENCOUNTER 2020-01-06 22:15 | Emergency (ER) | payer MEDICAID, OTHER ==
[2020-01-06 23:59] LABS: Blood Urea Nitrogen 7 mg/dL (7-17); Hemolysis Index 7
[2020-01-07 00:01] LABS: BUN/Creatinine Ratio 10
--- NOTE | 2020-01-07 00:17 | XRay Report ---
CHEST 1 VIEW 01/06/2020 11:10 PM INDICATION / CLINICAL INFORMATION: Chest Pain. COMPARISON: 06/19/19 FINDINGS: SUPPORT DEVICES: None. HEART / MEDIASTINUM: No significant abnormality. LUNGS / PLEURA: No significant pulmonary or pleural abnormality. No pneumothorax. ADDITIONAL FINDINGS: No significant additional findings. IMPRESSION: 1. No acute findings. No change. Signer Name: Jennifer Miner MD Signed: 01/07/2020 12:12 AM Workstation Name: [email or web address]
[2020-01-07 00:18] LABS: Hematocrit 40.2 % (30.3-42.9); Hemoglobin 13.4 gm/dl (10.1-14.3); Mean Corpuscular HGB Conc 33 % (30-34); Mean Corpuscular Volume 91 fl (79-97); Platelet Count 259 K/mm3 (140-440); Red Blood Count 4.43 M/mm3 (3.65-5.03); Red Cell Distribution Width 12.5 % (13.2-15.2)
--- NOTE | 2020-01-07 00:34 | Emergency Department Report ---
ED Chest Pain HPI - General Chief Complaint: Chest Pain Stated Complaint: CHEST DISCOMFORT, A FIB Time Seen by Provider: 01/06/20 23:56 Source: patient, EMS Mode of arrival: Ambulatory Limitations: No Limitations - History of Present Illness Initial Comments: 34-year-old female presents to ED with complaint of mild chest discomfort. Reports "discomfort" in the left chest since yesterday morning. She says this discomfort is associated with palpitations as well. Patient states she feels like she is about to "go into" A. fib. Patient has history of chronic A. fib, PE, and DVT. Patient is currently on Eliquis. Patient states she was diagnosed with DVT and PE in 2016. Patient states that the beginning of this month she was reevaluated for clot burden. States she had bilateral lower extremity ultrasounds which were negative for DVTs, also a negative chest CT which was negative for PE. Patient currently denies any shortness of breath. MD Complaint: other -: days(s) (1) Onset: during rest Pain Location: left chest Pain Radiation: none Severity: mild Quality: other ("Discomfort ") Consistency: constant Improves With: nothing Worsens With: nothing re: nausea. denies: vomting, diaphoresis, dyspnea Other Symptoms: denies: cough, fever - Related Data Home Medications Medication Instructions Recorded Confirmed Last Taken Apixaban [Eliquis] 5 mg PO BID 03/27/19 01/07/20 5 Days Ago ~05/03/19 Cholecalciferol (Vitamin D3) 1 cap PO QWEEK 04/20/19 01/07/20 05/05/19 [Vitamin D3 50,000UNIT CAP] Simvastatin 20 mg PO HS 04/20/19 01/07/20 05/07/19 Metoprolol Xl [Metoprolol 25 mg PO QDAY 04/26/19 01/07/20 05/08/19 06:40 SUCCINATE ER TAB] Allergies Allergy/AdvReac Type Severity Reaction Status Date / Time No Known Allergies Allergy Verified 04/26/19 10:30 Heart Score - HEART Score History: Slightly suspicious EKG: Normal Age: < 45 Risk factors: No known risk factors Troponin: < normal limit HEART Score: 0 ED Review of Systems ROS: Stated complaint: CHEST DISCOMFORT, A FIB Other details as noted in HPI Comment: All other systems reviewed and negative Constitutional: denies: fever Respiratory: denies: shortness of breath Cardiovascular: chest pain, palpitations Gastrointestinal: nausea. denies: vomiting ED Past Medical Hx - Past Medical History Previous Medical History?: Yes Hx Deep Vein Thrombosis: Yes (x2 takes Eliquis) Hx Pulmonary Embolism: Yes (Right) Hx GERD: Yes Hx Asthma: Yes (As a child) Additional medical history: Afib per pt - Surgical History Past Surgical History?: Yes Additional Surgical History: x1, cerclage x3 - Social History Smoking Status: Never Smoker - Medications Home Medications: Home Medications Medication Instructions Recorded Confirmed Last Taken Type Apixaban [Eliquis] 5 mg PO BID 03/27/19 01/07/20 5 Days Ago History ~05/03/19 Cholecalciferol (Vitamin D3) 1 cap PO QWEEK 04/20/19 01/07/20 05/05/19 History [Vitamin D3 50,000UNIT CAP] Simvastatin 20 mg PO HS 04/20/19 01/07/20 05/07/19 History Metoprolol Xl [Metoprolol 25 mg PO QDAY 04/26/19 01/07/20 05/08/19 06:40 History SUCCINATE ER TAB] ED Physical Exam - General Limitations: No Limitations General appearance: alert, in no apparent distress - Head Head exam: Present: atraumatic, normocephalic - Eye Eye exam: Present: normal appearance, EOMI - ENT ENT exam: Present: mucous membranes moist - Neck Neck exam: Present: normal inspection - Respiratory Respiratory exam: Present: normal lung sounds bilaterally. Absent: respiratory distress - Cardiovascular Cardiovascular Exam: Present: regular rate, normal rhythm - GI/Abdominal GI/Abdominal exam: Present: soft. Absent: distended, tenderness - Extremities Exam Extremities exam: Present: normal inspection. Absent: pedal edema, calf tenderness - Neurological Exam Neurological exam: Present: alert, oriented X3 - Psychiatric Psychiatric exam: Present: normal affect, normal mood - Skin Skin exam: Present: warm, dry, intact, normal color ED Course Vital Signs 01/06/20 01/06/20 01/07/20 22:53 23:56 00:00 Temperature 98.5 F Pulse Rate 65 62 63 Respiratory 16 11 L 11 L Rate Blood Pressure 111/72 116/61 O2 Sat by Pulse 99 100 Oximetry 01/07/20 01/07/20 01/07/20 00:10 00:15 00:30 Temperature Pulse Rate 69 64 59 L Respiratory 16 14 10 L Rate Blood Pressure 124/67 110/61 O2 Sat by Pulse 98 100 100 Oximetry 01/07/20 01/07/20 01/07/20 00:49 01:00 01:15 Temperature Pulse Rate 67 66 61 Respiratory 17 21 12 Rate Blood Pressure 110/61 119/65 122/65 O2 Sat by Pulse 98 100 Oximetry 01/07/20 01/07/20 01/07/20 01:30 01:45 02:00 Temperature Pulse Rate 60 67 70 Respiratory 8 L 9 L 12 Rate Blood Pressure 121/63 119/64 127/71 O2 Sat by Pulse 100 100 100 Oximetry 01/07/20 01/07/20 01/07/20 02:15 02:30 02:45 Temperature Pulse Rate 71 58 L 93 H Respiratory 13 17 16 Rate Blood Pressure 119/64 125/58 141/71 O2 Sat by Pulse 100 97 97 Oximetry SHANELLE score - Shanelle Score Age > 65: (0) No Aspirin use within the Past 7 Days: (0) No 2 or more Angina events in past 24 hrs: (0) No Known CAD with more than 50% Stenosis: (0) No Elevated Cardiac Markers: (0) No ST Deviation Greater than 0.5mm: (0) No ED Medical Decision Making - Lab Data Result diagrams: 01/06/20 23:10 01/06/20 23:10 - EKG Data -: EKG Interpreted by [facility] EKG shows normal: sinus rhythm, axis, intervals, QRS complexes, ST-T waves Rate: normal - EKG Data Interpretation: no acute changes - Radiology Data Radiology results: report reviewed, image reviewed - Medical Decision Making No ST changes on EKG. Troponin negative x2. Chest x-ray in unremarkable. Patient feeling much better at this time. Patient feels comfortable with discharge home. 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 Sandoval, on tomorrow. Return precautions given. - Differential Diagnosis ACS, A. fib with RVR, atypical chest pain Critical care attestation.: If time is entered above; I have spent that time in minutes in the direct care of this critically ill patient, excluding procedure time. ED Disposition Clinical Impression: Palpitations, Chest pain Disposition: - TO HOME OR SELFCARE Is pt being admited?: No Condition: Stable Instructions: Chest Pain (ED), Palpitations (ED) Referrals: KAREN RUBI [Other] - 3-5 Days PRIMARY CARE, [Referring] - 3-5 Days Time of Disposition: 02:52
[2020-01-07 01:17] LABS: Basophils % (Manual) 0 % (0.0-1.8); Eosinophils % (Manual) 0 % (0.0-4.3); Total Cells Counted 100
[2020-01-07 01:18] LABS: Anisocytosis Few; Platelet Estimate Consistent w Auto; Schistocytes Few
[2020-01-07 02:58] VITALS: BP 141/71
== END 2020-01-07 03:18 | disposition home or self-care (01) ==
LOC: ED 22:15
DX: R07.89 Other chest pain (principal); R00.2 Palpitations; K21.9 Gastro-esophageal reflux disease without esophagitis; J45.909 Unspecified asthma, uncomplicated; Z86.718 Personal history of other venous thrombosis and embolism; Z79.01 Long term (current) use of anticoagulants; Z86.711 Personal history of pulmonary embolism; Z98.890 Other specified postprocedural states
CPT/HCPCS: 36415; 71045; 80048; 84484; 85007; 85025; 93005

== ENCOUNTER 2020-11-06 09:24 | Outpatient (CLI) | payer OTHER ==
--- NOTE | 2020-11-06 11:31 | Vascular Lab Report ---
DUPLEX DOPPLER LOWER EXTREMITY VEINS, BILATERAL INDICATION / CLINICAL INFORMATION: ACUTE EMBOLISM AND THROMBOSIS. Protein C deficiency TECHNIQUE: Duplex doppler imaging was performed through the veins of both lower extremities using venous adriano josias and other maneuvers. COMPARISON: None available. FINDINGS: RIGHT COMMON FEMORAL VEIN: Negative. RIGHT FEMORAL VEIN: Negative. RIGHT POPLITEAL VEIN: Negative. RIGHT CALF VEINS: Negative. LEFT COMMON FEMORAL VEIN: Negative. LEFT FEMORAL VEIN: Negative. LEFT POPLITEAL VEIN: Negative. LEFT CALF VEINS: Negative. ADDITIONAL FINDINGS: None. IMPRESSION: 1. No sonographic evidence for DVT in either lower extremity. Signer Name: Constantine Sanford MD Signed: 11/06/2020 11:27 AM Workstation Name: [email or web address]
== END 2020-11-06 09:25 | disposition home or self-care (01) ==
LOC: VAS 09:24
PROVIDERS: ATTEND Internal Medicine Hematology & Oncology
DX: I82.403 Acute embolism and thrombosis of unspecified deep veins of lower extremity, bilateral (principal)
CPT/HCPCS: 93970

== ENCOUNTER 2020-11-13 09:55 | Outpatient (CLI) | payer OTHER ==
[2020-11-13 10:49] LABS: Blood Urea Nitrogen 7 mg/dL (7-17)
--- NOTE | 2020-11-13 12:08 | Cat Scan Report ---
CTA CHEST WITH CONTRAST INDICATION : PULMONARY EMPOLISM W/O ACUTE PULMONAL 100 ml omni 350 . TECHNIQUE: Axial imaging performed through the chest, with contrast bolus timing set to maximize opa cification of the pulmonary arteries. Sagittal and coronal reformatted images. 3-plane MIP reformatte d images were obtained. All CT scans at this location are performed using CT dose reduction for ALAR A by means of automated exposure control. 100 mL of intravenous contrast administered. COMPARISON: 03/27/2019 FINDINGS: Bolus: Contrast bolus timing is adequate. PTE: No filling defect is present to suggest PTE. Mediastinum: Heart and great vessels appear normal. No pathologic mediastinal adenopathy. Lungs: Lungs are clear. Bones: No significant abnormality. Upper abdomen: Limited imaging of the upper abdomen shows nothing acute. IMPRESSION: Negative for PTE. Clear lungs. Unremarkable CTA chest. Signer Name: Ming Yang Jr, MD Signed: 11/13/2020 12:04 PM Workstation Name: [id number]
== END 2020-11-13 09:56 | disposition home or self-care (01) ==
LOC: CT 09:55
PROVIDERS: ATTEND Internal Medicine Hematology & Oncology
DX: I26.99 Other pulmonary embolism without acute cor pulmonale (principal)
CPT/HCPCS: 36415; 71275; 82565; 84520; Q9967